=== PATIENT | male | born 2000 | race Caucasian/White ===

== ENCOUNTER 2022-09-06 01:25 | Emergency (ER) | payer SELFPAY ==
[~2022-09-06] VITALS: Ht 175.3 cm; Wt 127.0 kg
[2022-09-06 08:35] VITALS: BP 118/70
== END 2022-09-06 09:21 | disposition home or self-care (01) ==
LOC: ER 01:25
DX: F10.129 Alcohol abuse with intoxication, unspecified (principal); Y90.0 Blood alcohol level of less than 20 mg/100 ml
CPT/HCPCS: 99283